=== PATIENT | male | born 1960 | race Caucasian/White ===

== ENCOUNTER 2019-02-05 15:16 | Emergency (ER) | payer MEDICAID ==
[~2019-02-05] VITALS: Ht 165.1 cm; Wt 62.8 kg
[2019-02-05 15:32] VITALS: BP 156/84
== END 2019-02-05 16:44 | disposition home or self-care (01) ==
LOC: ED 16:35
DX: K02.9 Dental caries, unspecified (principal); K08.89 Other specified disorders of teeth and supporting structures
CPT/HCPCS: 70100; 99283; 99284